=== PATIENT | female | born 1980 | race Caucasian/White ===

== ENCOUNTER 2018-07-27 07:25 | Day surgery (SDC) | payer BC ==
[2018-07-24 12:32] LABS: BASOPHILS 0.1 % (0-2); EOSINOPHILS 2.7 % (0-7); HEMOGLOBIN 8.7 g/dL (12-16); IMMATURE GRANULOCYTES 0.5 % (0-5); LYMPHOCYTES 20.8 % (15-50); MCH 30.4 pg (26.0-34.0); MCHC 31.1 g/dL (31.0-37.0); MCV 97.9 fL (80.0-100.0); MEAN PLATELET VOLUME 10.5 fL (7.4-10.4); MONOCYTES 5.2 % (2-11); NEUTROPHILS 70.7 % (40-80); PLATELET COUNT 270 10x3/uL (130-400); RBC 2.86 10x6/uL (4.00-5.40); RDW 16.1 % (11.5-14.5); WBC 7.6 10x3/uL (4.8-10.8)
[2018-07-24 13:06] LABS: CALC OSMOLALITY 283 mosm/kg (275-300); CALCIUM 8.7 mg/dL (8.5-10.1); CARBON DIOXIDE 24.9 mmol/L (21.0-32.0); CHLORIDE - SERUM 106 mmol/L (98-107); CREATININE - SERUM 0.8 mg/dL (0.6-1.3); GLUCOSE 95 mg/dL (74-106); POTASSIUM - SERUM 3.8 mmol/L (3.5-5.1); SODIUM 142 mmol/L (136-145); UREA NITROGEN 15 mg/dL (7-18); eGFR NON AFRICAN AMERICAN 84 mL/min (90-120)
[~2018-07-27] VITALS: Ht 236.2 cm; Wt 142.3 kg
--- NOTE | ~2018-07-27 | OP ---
PATIENT NAME: RODDY HUGGINS MEDICAL RECORD: [id number] :76 LOCATION:[facility] ADMISSION DATE: SURGEON: JONATHON PEREA MD DATE OF OPERATION: 07/27/2018 DATE OF SERVICE: 07/27/2018 PREOPERATIVE DIAGNOSES: 1. Morbid obesity. 2. Dysfunctional uterine bleeding. POSTOPERATIVE DIAGNOSES: 1. Morbid obesity. 2. Dysfunctional uterine bleeding. PROCEDURES: 1. Dilation and curettage. 2. Diagnostic laparoscopy. 3. Laparoscopic subtotal hysterectomy. 4. Bilateral salpingectomy. SURGEON: Jonathon Perea MD TEACHER SELECTION SPECIALIST: Jai ANESTHESIA: General ANESTHESIOLOGIST: Dr. Alberto. FINDINGS: At the time of D&C, 10 brown tissue removed. At the time of the laparoscopy, both ovaries are unremarkable as well as tubes and uterus. What was visualized of the abdominal anatomy is unremarkable. SPECIMENS REMOVED: 1. Uterus and tubes morcellated without cervix. 2. Curettage sent for frozen. ESTIMATED BLOOD LOSS: Less than or equal to 150 cc. URINE OUTPUT: 25 cc of concentrated urine. FLUIDS: 1500 cc of lactated Ringer's. COMPLICATIONS: None. DRAINS: None. INDICATIONS: The patient is a 38-year-old female with morbid obesity, unable to obtain an endometrial biopsy in the clinic. The patient has undergone workup and has attempted conservative management for dysfunctional uterine bleeding. The patient was consented for a dilation and curettage with frozen section and to move on with hysterectomy if tissue found benign. DESCRIPTION OF PROCEDURE: After informed consent was assured, the patient was taken to the operating room where anesthetic was obtained. The patient was now OPERATIVE REPORT [id number] RODDY HUGGINS prepped and draped in the usual sterile fashion. The patient had been placed in [facility]. She was positioned for D&C. Speculum was introduced. The cervix grasped with a tenaculum and then serially dilated to accommodate a #2 sharp curette. The curettage was now performed and the specimen sent to pathology. Frozen section comes back as benign and then the laparoscopic procedure begins. With the legs positioned, an incision was made at the umbilicus and a trocar inserted. Pneumoperitoneum was developed and the patient was placed in Trendelenburg position. Accessory ports placed on the right lower quadrant is a 12-mm port, a 5-mm port to the left lower quadrant. Bowel was swept free of the pelvis. While elevating the right tube, a coagulation cutter was used to serially compressed, coagulated and separate the tissues. This dissection was carried out over the uterine ovarian ligaments and round ligaments. Anterior leaf of the broad ligament was opened and the bladder flap developed to the midline. The posterior leaf was now was dissected. The vessels of the right compressed and coagulated. Attention was now directed to the left side where the left tube was elevated in a like manner. Again, the dissection was carried out underneath the left tube across the uteroovarian and round ligaments. The bladder flap was developed to the midline. The posterior leaf was developed and the vessels of the left side were compressed, coagulated, and . Now using the SHANON Harmonic scalpel, the uterus was removed from its attachments to the cervix. This begins on the patient's left concluding on the right. The endocervical canal was now cauterized. The 12-mm port was removed and the PlasmaSORD was now inserted in the right lower quadrant. The uterus was now removed along with the tubes in several segments. After removal of the uterus, the 12-mm port was replaced into the abdomen. The pelvis was irrigated and irrigant removed. Straight portions of the uterus are now removed from the cul-de-sac. Interceed was placed over the cervical stump after the pelvis was then irrigated and all irrigant removed. Adequate hemostasis was noted. After placement of the Interceed, the pneumoperitoneum was released as the accessory trocars were removed. The primary trocar was now removed. Skin sites were closed with a subcuticular stitch and Dermabond applied. TRANSINT:[id number] Voice Confirmation ID: [id number] DOCUMENT ID: [id number] JONATHON PEREA MD CC: [id number] DICTATION DATE: 08/14/18 1452 OFFICE MACHINES TEACHER: 08/14/182321 [facility] 07/28/18 [place] [id number] [place] [id number]
[~2018-07-27 07:25] MED LIST: ALBUTEROL; AMBIEN10 MG PO; CENTRUM SILVER1 EAC3 PO; CITRACAL + D E1 EACH PO; FER-IN-SOL DROP50 ML PO; FOLIC ACID0.8 MG PO; IBUPROFEN800 MG PO; OMEGA-3100 MG PO; OMEPRAZOLE40 MG PO; PROVERA10 MG PO; VITAMIN C WIT1000 MG PO; VITAMIN D250000 UNIT PO
[2018-07-27 08:32] VITALS: BP 131/69; BMI 25.5
[2018-07-27 08:45] LABS: HCG URINE NEGATIVE (NEGATIVE)
--- NOTE | 2018-07-27 14:30 | NUR ---
received pt by bed from recovery room, she is awake and alert, with encouragment she moves self over to room bed. VSS as charted on flowsheet. IV saline locked to right hand, SCD's bilat per order, O2 96% but pt wishes to leave NC in place oxcygen at 1l/min. rates pain at "all over" at 10/10, she then request somehting to drink. small apple juice per request. Side rails up x 2, lights dimmed.
[2018-07-27 14:32] VITALS: BP 140/67
--- NOTE | 2018-07-27 14:50 | NUR ---
Tordal given diluted with 3ml NS, pushed slowly via IV. Pt denies complaint with iv medication. lights turned out she is encouraged to rest. Teenage son at bedside.
--- NOTE | 2018-07-27 16:00 | NUR ---
Called to room pt complains of increase pain that is constant, she rates it at 10/10 and states pain woke her up. Abdomen palpates soft and pt states that she is unsure if she needed to void or not. Agrees to pain and then up to bathroom.
--- NOTE | 2018-07-27 16:08 | NUR ---
Demerol 50 mg po with apple juice as seen on emar. Pt moves self to sitting up on side of bed amb to bathroom per self with complaints of nausea, she is able to void 400ml and perform michelle care with warm wet wash cloths. back to bed and position self for comfort. Pt voices her concerns about going home tonight stating that she lives alone with exception of her teenage son and adult daughter. Explained that she was not being sent home at this very minute and to rest now and would reevaluate after she was able to eat dinner. Pt is agreeable and request lights turned down. Family at bedside.
--- NOTE | 2018-07-27 17:15 | NUR ---
DR Sepulveda calls unit with new orders of Neurotin 300mg and Ambien 10mg qhs. report given of pt up to void x 1, and that tordal and demerol had been given Also reported that area around saline lock was swollen and pt does complain of tenderness with touch. Orders recieved to d/c saline lock, change tordol to PO.
--- NOTE | 2018-07-27 17:35 | NUR ---
pt resting with eyes closed and resp even, no distess noted, pt left undisthurbed at this time.
--- NOTE | 2018-07-27 19:10 | NUR ---
PT UP TO BATHROOM WITH STANDBY ASSISTANCE AT THIS TIME. SALINE LOCK TO THE RT HAND AT THIS TIME. NO ACUTE DISTRESS NOTED. PT TOLERATED WELL. Mark POPE RN
[2018-07-27 19:26] VITALS: BP 134/63
--- NOTE | 2018-07-27 19:26 | NUR ---
Pt in bed at this time. Vitals stable. Saline lock discontinued. Unable to flush. Lungs clear. BS decreased to bilateral upper quadrants and the lower left quad. Rt lower quadrant bowel sounds wnl. Pt voiding without difficulty. Incisions x3 noted to abdomen. No s/s of infection noted. Skin adhesive intact. No acute distress noted. Siderails up for safety. Call light in pt reach. Mark Beverly RN
--- NOTE | 2018-07-27 19:33 | NUR ---
Pt medicated with Percocet 5 one tab at this time for pain of 8 at this time. will continue to monitor pain this shift. Mark Beverly RN
--- NOTE | 2018-07-27 20:36 | NUR ---
PT AMBULATING IN HALLWAY WITH STEADY GAIT, PATIENTS SON AT HER SIDE.
--- NOTE | 2018-07-27 21:10 | NUR ---
pT MEDICATED WITH TORADOL IM AND NEURONTIN AT THIS TIME. WILL CONTINUE TO MONITOR. STATES PAIN IS 6. PT ENCOURAGED TO AMBULATE TO DECREASE PAIN AND PASS FLATUS. Mark POPE RN
[2018-07-27 21:32] VITALS: Ht 236.2 cm; Wt 142.3 kg
--- NOTE | 2018-07-27 22:19 | NUR ---
PILLOW PLACED UNDER PATIENTS LEGS FOR COMFORT PER PT REQUEST. STATES THAT SHE SLEEPS THAT WAY AT HOME. DENIES OTHER NEEDS, PATIENTS SON REMAINS AT BEDSIDE FOR SUPPORT.
--- NOTE | 2018-07-27 22:31 | NUR ---
PT UP AMBULATING AT THIS TIME. PT IS BELCHING BUT NO FLATUS AT THIS TIME. WILL CONTINUE TO MONITOR. Mark POPE RN
--- NOTE | 2018-07-28 01:10 | NUR ---
PT REC'D IN BED AT THIS TIME. DENIES PAIN. PT STILL HAS NOT PASSED GAS STATES THAT IT FEEL BETTER TO LAY ON SIDES. NO ACUTE DISTRESS NOTED AT THIS TIME. Mark POPE RN
--- NOTE | 2018-07-28 02:45 | NUR ---
PT AMBULATING IN HALLWAY AT THIS TIME. STATES THAT PAIN IS A 4. PT MEDICATED AT 0257 WITH ONE PERCOCET FOR PAIN. NO ACUTE DISTRESS NOTED AT THIS TIME. Mark POPE RN
[2018-07-28] MEDS ORDERED: PERCOCET 7.5/321 TAB PO (03:50)
[2018-07-28] MEDS ORDERED: MOBIC7.5 MG PO (03:51)
[2018-07-28] MEDS ORDERED: NEURONTIN 300300 MG PO (03:52)
--- NOTE | 2018-07-28 04:15 | NUR ---
PT ASLEEP. NOT AWAKENED AT THIS TIME. NO ACUTE DISTRESS NOTED. Mark POPE RN
[2018-07-28 05:57] VITALS: BP 119/60
--- NOTE | 2018-07-28 07:45 | NUR ---
PT SITTING UP EATING REGULAR DIET, DENIES NEEDS AT THIS TIME.
--- NOTE | 2018-07-28 08:20 | NUR ---
CALLED TO ROOM, REQUEST MADE FOR PAIN MED. STATES THAT SHE JUST GOT UP TO VOID AND NOW RATES PAIN AT 7-8/10. NOTED 400ML CLEAR URINE IN COLLECTION HAT.
--- NOTE | 2018-07-28 08:30 | NUR ---
DR PEREA AT BEDSIDE TALKING TO PATIENT ABOUT DISCHARGE AND PLAN OF CARE WITH FOLLOW UP. PAIN MEDS GIVEN CHARTED ON EMAR. PT STATES THAT HER DAUGHTER IS ON HER WAY AND WILL CALL WHEN SHE IS READY FOR DISCHARGE.
--- NOTE | 2018-07-28 09:15 | NUR ---
VERBAL AND WRITTEN DISCHARGE INSTRUCTIONS GONE OVER WITHOUT NO QUESTIONS OR CONCERNS. PT PROVIDED WITH WRITTEN SCRIPTS EXPLAINED PREVIOUSLY BY DR PEREA. VOLUNTEER NOTIFIED FOR WHEELCHAIR.
--- NOTE | 2018-07-28 09:30 | NUR ---
PT TAKEN OUT BY WHEELCHAIR HOME BY PRIVATE CAR WITH FAMILY.
== END 2018-07-28 09:30 | disposition home or self-care (01) ==
LOC: D.OPS 07:25 → D.PAN 10:00 → D.LD 14:17 → D.OPS 07-28 09:30
PROVIDERS: ATTEND Obstetrics & Gynecology
DX: N93.8 Other specified abnormal uterine and vaginal bleeding (principal); E66.01 Morbid (severe) obesity due to excess calories

== ENCOUNTER 2018-08-27 13:00 | Outpatient (CLI) | payer BC ==
[2018-07-27 21:32] VITALS: BMI 25.5
[~2018-08-27 13:00] MED LIST changes: +MOBIC7.5 MG PO; +NEURONTIN 300300 MG PO; +PERCOCET 7.5/321 TAB PO
== END 2018-08-27 14:00 | disposition home or self-care (01) ==
LOC: D.MAMMO 13:00
PROVIDERS: ATTEND Obstetrics & Gynecology
DX: Z12.31 Encounter for screening mammogram for malignant neoplasm of breast (principal)